=== PATIENT | female | born 1980 | race Caucasian/White ===

== ENCOUNTER 2017-03-20 11:24 | Observation (INO) | payer BC ==
--- NOTE | ~2017-03-20 | OP ---
Record Of Operation [facility] [address] [place]. [address] NAME: MANUEL VANESSA : 78 STATUS : ADM Thalia PAT#: [id number] AGE: 37 ADM/REG DATE : 03/20/17 MR#: [id number] REPORT SERV DATE: 03/20/17 DICTATED BY: ROHIT BAR DATE: 03/20/17 REPORT STATUS : Draft TRANSCRIBED BY: MODArcelia DATE: 03/20/17 DATE OF PROCEDURE: 03/20/2017 PREOPERATIVE DIAGNOSES: 1. Left trimalleolar ankle fracture dislocation. 2. Left medial malleolar nonunion. POSTOPERATIVE DIAGNOSES: 1. Left trimalleolar ankle fracture dislocation. 2. Left medial malleolar nonunion. PROCEDURES: 1. Takedown left tibial nonunion, [address]. 2. Deep hardware removal, left ankle. 3. Wound calcaneal autograft harvest. ANESTHESIA: General. COMPLICATIONS: None. INDICATION FOR OPERATION: Manuel Vanessa is a pleasant 37-year-old female who underwent original ORIF on 02/19/2016 due to the above-mentioned injury, which occurred while running a fun run. This was subsequently revised on 10/04/2016. Due to persistent pain and not in nonunion as documented on x-rays and CT scan, the above-mentioned surgery was discussed at length with the patient, who is a nurse practitioner. All of her questions were answered, and she wished to proceed. DESCRIPTION OF PROCEDURE: Manuel was brought back to operating room, where sedation was performed in the left sciatic nerve block with popliteal fossa was performed by the surgeon with insulated needle and nerve stimulator. Saphenous nerve block proximal to the ankle was performed. Left lower extremity was prepped and draped in the usual sterile fashion. Esmarch exsanguination was utilized and a well-padded tourniquet was inflated. A thigh tourniquet was inflated. Initially, longitudinal incision was made over the anterior and lateral aspect of the distal tibia. Blunt dissection was used to protect local neurovascular structures. We removed the anterior to posterior lag screw, which had secured the posterior malleolar fragment. The posterior malleolar fragment had completely healed and the screw appeared to be backing out. It was removed without difficulty. Next, a longitudinal incision was made following the previously made medial incision. Blunt dissection was used to protect local neurovascular structures. Limited subperiosteal dissection was used to expose the hardware. Deep hardware removal was performed. Next, we performed a careful subperiosteal dissection of the medial malleolus. We kept all the deltoid fibers intact. We explored anteriorly along the joint line as well as posteriorly where the posterior tibial tendon was located. We "opened up" the fracture site. We carefully debrided all fibrous scar tissue in previously placed allograft and synthetic graft. There was dense fibrous tissue the medial malleolus from the main tibia. The distal fragment was mobile. Once all the bone had been removed, we used a small Record Of Operation [place] [id number] [facility] [place]. [address] NAME: MANUEL VANESSA : 78 STATUS : ADM Thalia PAT#: [id number] AGE: 37 ADM/REG DATE : 03/20/17 MR#: [id number] REPORT SERV DATE: 03/20/17 DICTATED BY: ROHIT BAR DATE: 03/20/17 REPORT STATUS : Draft TRANSCRIBED BY: TR DATE: 03/20/17 osteotome to "melani petal" the bone fragments. We got back to healthy bleeding bone. Next, we reduced the fragment back to its anatomic location as best as we could determine. We visualized both the relationship of the bone to the posterior tibial tendon as well as the anterior joint line. Once we felt that it had been adequately reduced, one-third tubular plate was placed in the antiglide fashion. A combination of locking and nonlocking screws were used to secure the plate to the bone. Next, we used an Arthrex 4.0 mm cannulated screw. We placed this through in standard fashion over a guidewire. Position of the guidewire was checked with FluoroScan. This compressed the fragment. At this time, we decided to proceed with a bicortical fully-threaded fixation in an effort to gain maximal stability of this distal fragment. The Arthrex 3.5 mm fully threaded cortical screws were placed in standard lag fashion. The one was placed posterior to our initial cannulated screw and then the cannulated screw was subsequently swapped out for a longer cortical screw. Each cortical screw achieved excellent fixation. Washer was used for additional stability. Final FluoroScan imaging included careful views of AP, mortise, and lateral views of the ankle. Live FluoroScan rotation was performed, which documented acceptable reduction of the medial malleolus. We had excellent compression. At this time, careful visualization of the fracture site revealed an opportunity to pack some additional graft along the edges of the fracture. We proceeded to harvest calcaneal autograft. Small incision was made over the medial aspect of her hindfoot. Blunt dissection was used to protect local neurovascular structures. Very small trephine bone marrow biopsy needle was used to harvest multiple cores from her calcaneal tuberosity. These were packed along the edge of the nonunion site using a bone tamp, carefully tamped into position. At this time, gentle irrigation was performed. Deep tissue was closed over the hardware with interrupted 2-0 Vicryl suture. Subcutaneous tissues and skin were closed in typical fashion using a "no touch" technique. Bulky sterile dressings were applied and a well-padded posterior splint was placed. The patient did well throughout the case. She woke in the operating room and was transferred to recovery room in satisfactory condition. HOLLIE/TR Rohit Bar MD / [id number] CC: MD OC Chambers VICKI R
[~2017-03-20 11:24] MED LIST: AMB10 PO; ATEN25 PO; IMITREX100 MG PO; SYN.05 PO; TOPAMAX50 MG PO; TRINTELLIX10 MG PO; ULTRAM50 PO; VITD PO
[2017-03-21] MEDS ORDERED: PCET PO (10:47)
[2017-03-21] MEDS ORDERED: PR25 PO (10:47)
[2017-03-21] MEDS ORDERED: ASAEC PO (10:48)
== END 2017-03-21 12:10 | disposition home or self-care (01) ==
LOC: SDC 11:24 → SDC/OF 16:53 → 3SO 20:03
PROVIDERS: Orthopaedic Surgery Foot and Ankle Surgery
PROC: 0QHH04Z Insertion of Internal Fixation Device into Left Tibia, Open Approach (ICD-10-PCS; principal; 2017-03-20 12:45)
DX: S82.852A Displaced trimalleolar fracture of left lower leg, initial encounter for closed fracture (principal); J45.909 Unspecified asthma, uncomplicated; E03.9 Hypothyroidism, unspecified; F32.9 Major depressive disorder, single episode, unspecified; S82.52XA Displaced fracture of medial malleolus of left tibia, initial encounter for closed fracture; Z98.890 Other specified postprocedural states; Z79.891 Long term (current) use of opiate analgesic; Z79.899 Other long term (current) drug therapy
CPT/HCPCS: 76000; 84703; 88300; 96374; 96375; 96376; 97161-GP; A9270-GY; C1713; G0378; J0330; J0690; J1170; J2250; J2405; J2795; J3010